=== PATIENT | female | born 1965 | race African-American/Black ===

== ENCOUNTER 2023-07-21 05:08 | Inpatient (IN) | payer MEDICAID, OTHER ==
[~2023-07-21] VITALS: Ht 167.6 cm; Wt 77.3 kg
[2023-07-21 06:10] LABS: Basophils # (auto) 0.1 10 ^3/uL (0-0.2); Eosinophils # (auto) 0 10 ^3/uL (0-0.8); Eosinophils % (auto) 0.1 % (0.0-7.0); Monocytes # (auto) 0.6 10 ^3/uL (0-1.3); Neutrophils # (auto) 2.7 10 ^3/uL (1.6-8.6); Nucleated Red Blood Cells % 0.3 %; White Blood Cell 8.4 10^3/uL (4.4-10.8)
[2023-07-21 06:12] LABS: Basophils % (auto) 1.5 % (0.0-2.0); Hematocrit 36.4 % (36.0-46.0); Lymphocytes # (auto) 4.9 10 ^3/uL (0.4-5.4); Lymphocytes % (auto) 58.5 % (10.0-50.0); Mean Corpuscular Hemoglobin 25.8 pg (28.0-32.0); Mean Corpuscular Volume 78.3 fL (80.0-100.0); Monocytes % (auto) 7.3 % (0.0-12.0); Neutrophils % (auto) 32.6 % (37.0-80.0); Red Blood Cells 4.64 10^6/uL (4.0-5.20); Red Cell Distribution Width 15.9 % (11.8-14.3)
[2023-07-21 06:20] LABS: Chloride 109 mmol/L (98-107); Potassium 4.2 mmol/L (3.5-5.1); Sodium 140 mmol/L (136-145)
[2023-07-21 06:21] LABS: Anion Gap 7 (5-15); Calcium 9.4 mg/dL (8.5-10.1); Carbon Dioxide 24 mmol/L (20-30)
[2023-07-21 06:26] LABS: BUN/Creatinine Ratio 18.3 (10.0-20.0); Blood Urea Nitrogen 13 mg/dL (9-23); Glucose 99 mg/dL (74-106)
[2023-07-21 07:32] LABS: INR 1.04 (0.9-1.15); Prothrombin Time 10.9 sec (9.3-11.8)
[2023-07-21 07:41] LABS: Urine Bacteria FEW /hpf (None Seen); Urine Blood Negative /uL (Negative); Urine Clarity HAZY (Clear); Urine Color Yellow (Yellow); Urine Mucus FEW (None Seen); Urine Protein, UAD Negative (Negative); Urine Specific Gravity 1.024 (1.001-1.035); Urine Urobilinogen Normal (Negative); Urine WBC 1 /hpf (0 - 5); Urine pH 6.5 (5.0-8.0)
[2023-07-21] MEDS: amLODIPine BESYLATE 5 MG TAB PO ONE (07:55)
[2023-07-21] MEDS: ASPirin-EC 325mg tab PO ONE (07:56)
[2023-07-21] MEDS: NITROGLYCERIN 2% OINT 1GM PKG TD ONE (07:57)
[2023-07-21] MEDS: IOHEXOL 350 MG/ML 100ML IJ ONE (07:58)
[2023-07-21] MEDS: IOHEXOL 300 MG/ML 100ML BOTTLE IJ ONE (07:59)
[2023-07-21 08:05] LABS: Alanine Aminotransferase 17 U/L (7-40); Albumin 4.1 g/dL (3.2-4.8); Alkaline Phosphatase 72 U/L (46-116); Aspartate Aminotransferase 24 U/L (13-40); Bilirubin, Direct < 0.1 mg/dL (<0.3); Bilirubin, Total 0.2 mg/dL (0.2-1.0); Total Protein 6.9 g/dL (5.7-8.2)
[2023-07-21] MEDS ORDERED: ONDANSETRON HCL 4 MG/2 ML VIAL IV PRN (09:15)
[2023-07-21] MEDS ORDERED: ACETAMINOPHEN 325 MG TAB PO PRN (09:15)
[2023-07-21] MEDS ORDERED: MORPHINE SULFATE 4 MG/ML SYR/VIAL IV PRN (09:15)
[2023-07-21] MEDS ORDERED: NITROGLYCERIN 0.4 MG SL TAB SL PRN (09:15)
[2023-07-21 09:22] LABS: Lipase 37 U/L (12-53)
[2023-07-21 09:26] VITALS: PULSE 80; RESP 18; O2SAT 96
[2023-07-21 09:53] LABS: INR 1.06 (0.9-1.15); Prothrombin Time 11.1 sec (9.3-11.8)
[2023-07-21] MEDS: DOCUSATE SOD 100 MG CAP PO SCH (10:00)
[2023-07-21] MEDS: METOPROLOL TARTRATE 25 MG TAB PO SCH (10:45)
[2023-07-21] MEDS: ASPirin 81 mg TAB PO SCH (10:45)
[2023-07-21 15:11] VITALS: TEMP 98.2
[2023-07-21] MEDS: MAGNESIUM SULFATE 1GM/100ML 100 ML IV ONE (16:00)
[2023-07-21 16:50] LABS: Triglycerides 58 mg/dL (< 150)
[2023-07-21 16:51] LABS: LDL Cholesterol 90 mg/dL (< 100)
[2023-07-21 16:52] LABS: Cholesterol 140 mg/dL (< 200); HDL Cholesterol 44 mg/dL (40-59)
[2023-07-21 19:30] VITALS: BP 130/87; PULSE 80; RESP 12; O2SAT 98
[2023-07-21 20:00] VITALS: PULSE 76
[2023-07-21] MEDS ORDERED: ENOXAPARIN SOD 100 MG/1 ML SYRINGE SC SCH (22:00)
[2023-07-21] MEDS ORDERED: ENOXAPARIN SOD 80 MG/0.8ML SYRINGE SC SCH (22:00)
[2023-07-21] MEDS ORDERED: ATORVASTATIN 20 MG TAB PO SCH (22:00)
[2023-07-22] MEDS ORDERED: hydroCHLOROthiazide 25 MG TAB PO SCH (10:00)
[2023-07-22] MEDS ORDERED: ENOXAPARIN SOD 40 MG/0.4 ML SYRINGE SC SCH (10:00)
== END 2023-07-21 20:52 | disposition left against medical advice (07) | DRG 190 ==
LOC: ER 05:08 → TELE 09:04
PROVIDERS: ADMIT Nurse Practitioner Family; ATTEND Nurse Practitioner Family
DX: R07.89 Other chest pain (principal); I21.A1 Myocardial infarction type 2; I16.1 Hypertensive emergency; N30.00 Acute cystitis without hematuria; Z82.49 Family history of ischemic heart disease and other diseases of the circulatory system
CPT/HCPCS: 36415; 71045; 71275; 80048; 80061; 80076; 81001; 83036; 83690; 83735; 84443; 84484; 85025; 85610; 93005; 93306; 99291; G0378; J2405